=== PATIENT | female | born 1985 | race Caucasian/White ===

== ENCOUNTER 2019-10-17 00:37 | Emergency (ER) | payer OTHER, SELFPAY ==
--- NOTE | ~2019-10-17 | XR_ITS ---
EXAMINATION: XR chest 2V DATE: 10/17/2019 01:12 INDICATION: Left-sided chest and arm pain. Asthma. TECHNIQUE: PA and lateral views of the chest were obtained. COMPARISON: Chest radiograph dated 12/18/2017 FINDINGS: The lungs remain clear with no focal airspace opacities, pulmonary edema, pleural effusion or pneumot horax. The cardiomediastinal silhouette is normal. Visualized bones and soft tissues are unremarkable . IMPRESSION: 1. No acute cardiopulmonary disease. Reviewed, dictated and finalized at location A.
[2019-10-17 00:42] VITALS: BP 140/72; PULSE 67; RESP 20; TEMP 37; O2SAT 100
--- NOTE | 2019-10-17 00:44 | ECG_ITS ---
Measurements Intervals [place] Rate: 65 P: 43 TX: 144 QRS: 18 QRSD: 86 T: -78 QT: 380 QTc: 396 Interpretive Statements SINUS RHYTHM DELAYED PRECORDIAL R/S TRANSITION BORDERLINE ST-T WAVE ABNORMALITY- INFERIOR LEADS BASELINE WANDER- I, II, AVR, AVL, AVF BORDERLINE ECG Electronically Signed On 10-17-2019 7:05:48 CDT by Scott Mcdaniels D.O.
[2019-10-17 01:14] LABS: Basophils Absolute Auto 0.1 K/mm3 (0.0-0.1); Basophils Percent Auto 0.8 % (0.2-1.2); Eosinophils Absolute Auto 0.1 K/mm3 (0-0.3); Hematocrit 39.4 % (37.0-47.0); Hemoglobin 13.5 g/dL (12.0-15.0); Immature Granulocyte Absolute 0.02 K/mm3 (0.00-0.031); Immature Granulocyte Percent A 0.2 % (0-0.5); Lymphocytes Absolute Auto 2.73 K/mm3 (0.9-3.2); Lymphocytes Percent Auto 32.8 % (18.3-44.2); Mean Corpuscular HGB Conc 34.3 g/dl (32-36); Mean Corpuscular Hemoglobin 31.1 pg (26-34); Mean Corpuscular Volume 90.8 fl (80-100); Mean Platelet Volume 10.8 fl (7.4-10.4); Monocytes Absolute Auto 0.5 K/mm3 (0.1-0.6); Monocytes Percent Auto 6.3 % (2.6-8.5); Neutrophils Absolute Auto 4.9 K/mm3 (1.3-6.7); Neutrophils Percent Auto 58.9 % (45.5-73.1); Platelet Count Result 228 k/mm3 (150-375); Red Blood Count 4.34 M/mm3 (4.2-5.4); Red Cell Distribution Width 12.1 % (11.5-14.5); White Blood Count 8.3 K/mm3 (4.5-10.0)
[2019-10-17] MEDS: ASPIRIN 81 MG CHEWABLE TABLET 324 MG PO (01:14)
[2019-10-17 01:24] LABS: Prothrombin Time 12.9 Seconds (11.1-14.7)
[2019-10-17 01:25] LABS: Partial Thromboplastin Time 25.7 SECONDS (22.3-36.8)
[2019-10-17 01:28] VITALS: BP 132/24; PULSE 63; RESP 17; O2SAT 100
[2019-10-17 01:33] LABS: Anion Gap 9 mmol/L (8-16); Blood Urea Nitrogen 12 mg/dL (7-17); Calcium 8.9 mg/dL (8.4-10.2); Carbon Dioxide 26 mmol/L (22-30); Chloride 101 mmol/L (98-107); Estimated Glomerular Filt Rate > 60; Glucose 90 mg/dL (65-105); Potassium 3.8 mmol/L (3.4-5.0); Sodium 136 mmol/L (137-145)
--- NOTE | 2019-10-17 01:40 | ED.CHESTPAIN ---
HPI - Chest Pain General Chief Complaint: Chest Pain Stated Complaint: Chest pain Time Seen by Provider: 10/17/19 01:33 History of Present Illness HPI narrative: Patient presents with upper left chest pain radiating into her left arm. This happened when she was laying in bed with her son. She tried rolling over and stretching to get rid of it. She gauges it at a 10 out of 10 at that time. It is improved to an 8 out of 10 with the aspirin we gave her here. She has a history of GE reflux. She has a history of asthma. She has bipolar. She has not been sick recently. She has not been coughing. She smokes cigarettes,, but does not do marijuana. Has had endometriosis surgery,, . And hysterectomy. MD complaint: chest pain Pertinent past history: other (Asthma and bipolar) Onset (ago): hour(s) Timing of current episode: episodic Prior episodes: No Onset: during rest Pain location: left chest Pain radiation: left arm Severity: severe Relieving factors: nothing Exacerbating factors: nothing Related Data Allergies Allergy/AdvReac Type Severity Reaction Status Date / Time adhesive Allergy Mild RASH AND Verified 10/17/19 00:45 ITCHING latex Allergy Mild RASH Verified 10/17/19 00:45 linezolid Allergy Mild RASH Verified 10/17/19 00:45 paliperidone Allergy Mild RASH Verified 10/17/19 00:45 Penicillins Allergy Mild ANAPHYLACTIC Verified 10/17/19 00:45 REACTION hydrocodone Allergy Unknown RASH Verified 10/17/19 00:45 levofloxacin Allergy Unknown RASH Verified 10/17/19 00:45 clarithromycin AdvReac Mild RASH Verified 10/17/19 00:45 AMOXICILLIN TRIHYDRATE Allergy Mild SOB Uncoded 10/17/19 00:45 POTASSIUM CLAVULANATE Allergy Mild SOB Uncoded 10/17/19 00:45 DERMABOND AdvReac Unknown RASH; Uncoded 10/17/19 00:45 WOUND NONHEALING Review of Systems Review of Systems: Narrative: CONSTITUTIONAL: Denies fever, chills, or sweats. EYES: Denies visual changes, redness, or discharge. ENT: Denies rhinorrhea, congestion, sore throat, or otalgia. CARDIOVASCULAR: She has chest pain, but not palpitations, or edema. RESPIRATORY: Denies cough or dyspnea. GASTROINTESTINAL: Denies abdominal pain, nausea, vomiting, or diarrhea. GENITOURINARY: Denies dysuria or hematuria. SKIN: Denies rash or itching. MUSCULOSKELETAL: Denies back pain, joint pain, or myalgia. NEUROLOGIC: Denies headache, numbness, or weakness. PSYCHIATRIC: She has anxiety bipolar. All systems reviewed & are unremarkable except as noted in HPI and below PMFSH Past Medical History Medical History Asthma Bipolar 1 disorder GERD (gastroesophageal reflux disease) Surgical History Surgical History H/O: hysterectomy Hx of section Social History Social History Smoking status: Former smoker Exam Narrative: Exam Narrative: GENERAL: Well-appearing, well-nourished, and in no acute distress. HEAD: Normocephalic, atraumatic. EYES: PERRLA and EOMI. ENT: Nares clear, no rhinorrhea or epistaxis. Mucous membranes moist. NECK: Supple. CHEST: Clear to auscultation. No respiratory distress. HEART: Regular rate and rhythm. No murmur heard. Normal peripheral pulses. ABDOMEN: Soft, nontender, nondistended, normal active bowel sounds. EXTREMITIES: Normal range of motion. No edema. Cool hands SKIN: Warm, dry, no rash. NEURO: No focal deficits. Alert and oriented x3. PSYCH: Normal mood and affect. Course Vital Signs Vital signs: Vital Signs Temperature 98.6 F 10/17/19 00:42 Pulse Rate 67 10/17/19 00:42 Respiratory Rate 20 10/17/19 00:42 Blood Pressure 140/72 10/17/19 00:42 Pulse Oximetry 100 10/17/19 00:42 Temperature 98.6 F 10/17/19 00:42 Pulse Rate 63 10/17/19 01:28 Respiratory Rate 17 10/17/19 01:28 Blood Pressure 132/24 L 10/17/19 01:28 Pulse Oximetry 100
[2019-10-17 01:46] LABS: Troponin I < 0.012 ng/mL (0.000-0.034)
[2019-10-17] MEDS: FAMOTIDINE 20 MG/2 ML VIAL IV PUSH (02:08)
[2019-10-17] MEDS: KETOROLAC 15 MG/ML VIAL (*BKC) IV PUSH (02:08)
[2019-10-17 02:17] VITALS: BP 136/87; PULSE 65; RESP 18; O2SAT 100
== END 2019-10-17 02:18 | disposition home or self-care (01) ==
PROVIDERS: Emergency Provider Emergency Medicine; PCP Family Medicine
DX: R07.89 Other chest pain (principal); K21.9 Gastro-esophageal reflux disease without esophagitis; F17.210 Nicotine dependence, cigarettes, uncomplicated; J45.909 Unspecified asthma, uncomplicated; R94.31 Abnormal electrocardiogram [ECG] [EKG]
CPT/HCPCS: 36415; 71046; 80048; 84484; 85025; 85610; 85730; 93005; 96374; 96375; 99284; A9270; J1885

== ENCOUNTER 2020-06-17 21:38 | Emergency (ER) | payer OTHER, SELFPAY ==
[2020-06-17 21:51] VITALS: BP 126/78; PULSE 64; RESP 20; TEMP 36.7; O2SAT 100
[2020-06-17 22:33] VITALS: PULSE 58
[2020-06-17 22:34] VITALS: BP 143/68; PULSE 58; RESP 12; O2SAT 100
--- NOTE | 2020-06-17 22:35 | PC.NURSE ---
pt to ED room 8. reports starting quetiapine 150 mg last week for bipolar disorder. since then, has had itching and rash, so was told to stop taking it yesterday by md. pt reports eating hibachi dinner tonight and now feeling spacy and out of it . a/o x 4. able to answer all questions appropriately. gcs 15. mother at bedside. placed on engine monitor.
--- NOTE | 2020-06-17 22:57 | ED.GENADULT ---
HPI - General Adult General Chief complaint: Unspecified Stated complaint: possible reaction to medication Time Seen by Provider: 06/17/20 22:38 Source: patient Mode of arrival: ambulatory Limitations: no limitations History of Present Illness HPI narrative: Patient is a 34-year-old female complaining of she feels off , spacing off , not feeling right started 1 week ago after her Seroquel XR dose was increased to 150 mg. Patient called her doctor and was advised to hold her Seroquel this past Thursday. Patient has been off her Seroquel for the past 2 days. Patient denies any visual or auditory hallucinations. Patient denies any suicidal homicidal thoughts. Patient denies any thoughts of injuring herself. Related Data Allergies Allergy/AdvReac Type Severity Reaction Status Date / Time adhesive Allergy Mild RASH AND Verified 06/17/20 22:38 ITCHING latex Allergy Mild RASH Verified 06/17/20 22:38 linezolid Allergy Mild RASH Verified 06/17/20 22:38 paliperidone Allergy Mild RASH Verified 06/17/20 22:38 Penicillins Allergy Mild ANAPHYLACTIC Verified 06/17/20 22:38 REACTION hydrocodone Allergy Unknown RASH Verified 06/17/20 22:38 levofloxacin Allergy Unknown RASH Verified 06/17/20 22:38 clarithromycin AdvReac Mild RASH Verified 06/17/20 22:38 AMOXICILLIN TRIHYDRATE Allergy Mild SOB Uncoded 06/17/20 22:38 POTASSIUM CLAVULANATE Allergy Mild SOB Uncoded 06/17/20 22:38 DERMABOND AdvReac Unknown RASH; Uncoded 10/17/19 00:45 WOUND NONHEALING Review of Systems Review of Systems: All systems reviewed & are unremarkable except as noted in HPI and below Constitutional: Constitutional: Denies body ache(s), Denies chills, Denies excessive sweating, Denies fatigue, Denies fever(s), Denies headache(s), Denies lethargy, Denies malaise, Denies weakness and Denies weight loss Eyes: Eyes: Denies blurry vision, Denies change in vision and Denies loss of vision ENT: Denies dizziness, Denies ear discharge, Denies headache(s), Denies lip swelling, Denies epistaxis, Denies nasal congestion, Denies neck pain, Denies throat swelling and Denies tongue swelling Cardiovascular: Cardiovascular: Denies chest pain, Denies chest pain at rest, Denies chest pain with activity, Denies diaphoresis, Denies rapid heart rate, Denies edema, Denies irregular heart rhythm, Denies lightheadedness, Denies palpitations, Denies dyspnea and Denies dyspnea on exertion Respiratory: Respiratory: Denies chest congestion, Denies cough, Denies hemoptysis, Denies dyspnea and Denies dyspnea on exertion Gastrointestinal: Gastrointestinal: Denies abdominal pain, Denies melena, Denies hematochezia, Denies diarrhea, Denies nausea, Denies vomiting and Denies hematemesis Musculoskeletal: Musculoskeletal: Denies abnormal gait, Denies deformity, Denies joint swelling, Denies limited range of motion, Denies neck pain and Denies numbness Neurologic: Denies Abnormal speech present, Denies abnormal gait, Denies confusion, Denies dizziness, Denies headache(s), Denies focal weakness, Denies loss of vision, Denies numbness, Denies Other visual disturbances, Denies Sensory deficit (Neuro) and Denies weakness Psychiatric: Psychiatric: Denies depression, Denies auditory hallucinations, Denies homicidal ideation and Denies suicidal ideation Endocrine: Endocrine: Denies cold intolerance, Denies excessive sweating, Denies fatigue, Denies heat intolerance and Denies palpitations Hematologic/Lymphatic: Hematologic/Lymphatic: Denies easy bleeding and Denies easy bruising Allergic/Immunologic: Allergic/Immunologic: Denies lip swelling, Denies throat swelling and Denies tongue swelling PMFSH Past Medical History Medical History Asthma Bipolar 1 disorder GERD (gastroesophageal reflux disease) Surgical History Surgical History H/O: hysterectomy Hx of section Social Histo
[2020-06-17] MEDS: BENZTROPINE MESYLATE INJ 1 MG/ML AMPUL IM (23:21)
--- NOTE | 2020-06-17 23:50 | ED.GENADULT ---
HPI - General Adult General Chief complaint: Unspecified Stated complaint: possible reaction to medication Time Seen by Provider: 06/17/20 22:38 Source: patient Mode of arrival: ambulatory Limitations: no limitations Related Data Allergies Allergy/AdvReac Type Severity Reaction Status Date / Time adhesive Allergy Mild RASH AND Verified 06/17/20 22:38 ITCHING latex Allergy Mild RASH Verified 06/17/20 22:38 linezolid Allergy Mild RASH Verified 06/17/20 22:38 paliperidone Allergy Mild RASH Verified 06/17/20 22:38 Penicillins Allergy Mild ANAPHYLACTIC Verified 06/17/20 22:38 REACTION hydrocodone Allergy Unknown RASH Verified 06/17/20 22:38 levofloxacin Allergy Unknown RASH Verified 06/17/20 22:38 clarithromycin AdvReac Mild RASH Verified 06/17/20 22:38 AMOXICILLIN TRIHYDRATE Allergy Mild SOB Uncoded 06/17/20 22:38 POTASSIUM CLAVULANATE Allergy Mild SOB Uncoded 06/17/20 22:38 DERMABOND AdvReac Unknown RASH; Uncoded 10/17/19 00:45 WOUND NONHEALING PMFSH Past Medical History Medical History Asthma Bipolar 1 disorder GERD (gastroesophageal reflux disease) Surgical History Surgical History H/O: hysterectomy Hx of section Social History Social History Smoking status: Former smoker Course Vital Signs Vital signs: Vital Signs Temperature 36.7 C 06/17/20 21:51 Pulse Rate 64 06/17/20 21:51 Respiratory Rate 20 06/17/20 21:51 Blood Pressure 126/78 06/17/20 21:51 Pulse Oximetry 100 06/17/20 21:51 Temperature 36.7 C 06/17/20 21:51 Pulse Rate 58 L 06/17/20 22:34 Respiratory Rate 12 06/17/20 22:34 Blood Pressure 143/68 H 06/17/20 22:34 Pulse Oximetry 100 06/17/20 22:34 Medical Decision Making Vital Signs Vital Signs: Vital Signs Temperature 36.7 C 06/17/20 21:51 Pulse Rate 64 06/17/20 21:51 Respiratory Rate 20 06/17/20 21:51 Blood Pressure 126/78 06/17/20 21:51 Pulse Oximetry 100 06/17/20 21:51 Temperature 36.7 C 06/17/20 21:51 Pulse Rate 58 L 06/17/20 22:34 Respiratory Rate 12 06/17/20 22:34 Blood Pressure 143/68 H 06/17/20 22:34 Pulse Oximetry 100 06/17/20 22:34 Discharge Plan Discharge Clinical Impression: Medication side effect Patient Disposition: Home, Self-Care Condition: Improved Instructions: Bipolar Disorder (ED) Additional Instructions: Follow-up with your psychiatrist tomorrow. Prescriptions: No Action famotidine [Pepcid] 20 mg tablet 20 mg PO DAILY Qty: 30 RF: 0 Follow-up/Referrals: Rivera,Ricardo Piedra MD [Primary Care Provider] - 06/18/20 Time of Disposition: 23:30
[2020-06-18 00:15] VITALS: BP 104/66; PULSE 61; RESP 18; O2SAT 100
== END 2020-06-18 00:15 | disposition home or self-care (01) ==
LOC: ANHED 23:33
PROVIDERS: Emergency Provider Emergency Medicine; PCP Family Medicine
DX: R41.0 Disorientation, unspecified (principal); T43.595A Adverse effect of other antipsychotics and neuroleptics, initial encounter; J45.909 Unspecified asthma, uncomplicated; F31.9 Bipolar disorder, unspecified; K21.9 Gastro-esophageal reflux disease without esophagitis; Z87.891 Personal history of nicotine dependence
CPT/HCPCS: 96372; 99283; J0515

== ENCOUNTER 2020-07-13 14:30 | Outpatient (RCR) | payer OTHER, SELFPAY ==
--- NOTE | 2020-06-15 10:41 | PTOPEVAL ---
PHYSICAL THERAPY EVALUATION Thank you for referring Radha Mae to [facility].? Radha was evaluated for the dx of low back pain. The patient is scheduled to be seen for therapy? 2 x/week for 4 weeks. Please review, sign, date and return this plan of care [email or web address]. I agree with and certify that the following plan of care is medically necessary. Referring Physician Date Referring Provider: Ricardo Stafford, *PT Outpatient Evaluation Start: 06/15/20 09:33 Freq: Status: Active Protocol: Document 06/15/20 09:33 MLV (Rec: 06/15/20 10:31 MLV [id number]) Therapy Assessment Status Assessment Status Evaluation Evaluation Information Problem Diagnosis low back pain with sciatic pain Onset 6 yrs ago Additional Evaluation Detail Pt has had pain at her low back since having her child 6 years ago. Pt reports the pain started when they had a lot of trouble getting the epidural in correctly. The patient cares for her 3 boys, one which is autistic. Pt is a stay at home mom, does her housework, cooking, yardwork. The patient reports increased pain with lifting heavier objects, bending. Pt is not sleeping due to pain Subjective Information Pt goal is to be pain free at Query Text:As Reported By Patient/ her low back with bending/ Family lifting and at night. To sleep at night w/o pain waking Diagnostic Tests X-Rays For This Problem Yes: no bony structure issues Pain Assessment Timing of Pain Assessment Timing of Pain Assessment Assessment Pain Scale Pain Scale Used Numeric (1 - 10) Self Report Pain Assessment Lower Back Reported Pain Level 8 Pain Frequency Chronic Greatest Pain Intensity 10 Pain Aggravating Factors Bending,Lifting Pain Behaviors Guarding Pain Score Pain Score 8: Self Report Interventions Used Interventions Used By Clinicians Education,Electrical Stimulation,Exercise,Heat Pain Relief Interventions Used By Heat,Inactivity/Rest, Patient Medication,Position Change, Water Modality Other Alleviating Interventions pain mgmt-had one injection so far; gabapentin and m. relaxers Cervical and Lumbar ROM Lumbar
--- NOTE | 2020-07-13 15:17 | PTOPEVAL ---
PHYSICAL THERAPY DISCHARGE Thank you for referring Radha Mae to [facility].? The patient has been seen 9 visits for the dx of back pain with sciatica. The patient's goals are partially or not met with status peaked. DC PT. Please review, sign, date and return this plan of care. Referring Physician Date Referring Provider: Ricardo Stafford, MD *PT Outpatient Discharge Start: 06/15/20 09:33 Freq: Status: Active Protocol: Document 07/13/20 14:29 MLV (Rec: 07/13/20 14:59 MLV [id number]) Therapy Assessment Status Assessment Status Assessment Status Discharge Evaluation Information Problem Diagnosis low back pain with sciatic pain Onset 6 yrs ago Additional Evaluation Detail Patient reports her back pain is still about the same despite the therapy. The patient plans to schedule an appt with the MD regarding her back due to lack of improvement. The patient has an appt with pain mgmt on July 23 for follow up to determine next step for her back trouble. Pain Assessment Timing of Pain Assessment Timing of Pain Assessment Assessment Pain Scale Pain Scale Used Numeric (1 - 10) Self Report Pain Assessment Lower Back Reported Pain Level 8 Pain Frequency Chronic,Continuous Pain Aggravating Factors Bending,Lifting Pain Score Pain Score 8: Self Report Interventions Used Interventions Used By Clinicians Education,Electrical Stimulation,Exercise,Heat Pain Relief Interventions Used By Heat,Walking,Water Modality Patient Cervical and Lumbar ROM Lumbar ROM Lumbar Flexion Active [place],Ankle Query Text:Hands to: Lumbar Extension (0-40) 40 Query Text:Active in Degrees Lumbar Lateral Flexion Right (0-40) 40 Query Text:Active in Degrees Lumbar Lateral Flexion Left (0-40) 40 Query Text:Active in Degrees Lateral Rotation Right (0-45) 40 Query Text:Active in Degrees Lateral Rotation Left (0-45) 40 Query Text:Active in Degrees Lumbar Comments left rotation feels stiffer than right Cervical and Lumbar Muscle Testing Lumbar Strength Upper Abdominal Strength 3 Fair Lower Abdominal Strength 3 Fair Abdominal Obliques 3-Fair- Upper Back Extension 4-Good- Lower Back Extension
== END 2020-07-18 09:13 | disposition home or self-care (01) ==
LOC: ANHPT 14:30
PROVIDERS: PCP Family Medicine; Referring Provider Family Medicine; Visit Provider Family Medicine
DX: M54.5 Low back pain (principal)
CPT/HCPCS: 97014; 97110; 97140; 97162; G0283

== ENCOUNTER 2020-10-12 22:39 | Emergency (ER) | payer OTHER, SELFPAY ==
--- NOTE | ~2020-10-12 | XR_ITS ---
EXAMINATION: XR chest 1V portable DATE: 10/12/2020 23:08 INDICATION: Chest pain. TECHNIQUE: A single frontal view of the chest was obtained. COMPARISON: Chest 2 views 10/17/2019 FINDINGS: There is no pneumonia, pleural effusion, or pneumothorax. The heart size is normal. IMPRESSION: 1. No acute cardiopulmonary disease. Reviewed, dictated and finalized at location A.
[2020-10-12 22:41] VITALS: BP 130/100; PULSE 128; RESP 16; TEMP 36.8; O2SAT 100
--- NOTE | 2020-10-12 22:47 | ED.SOB ---
HPI - SOB/Dyspnea History of Present Illness HPI Narrative: 35 yo female w/ h/o BPD, asthma presents to the ED c/o COVID-19. She reports that she was diagnosed with COVID-19 on 10/05 and her symptoms began about the same time. these symptoms include cough, N/V/D, body aches, fatigue. She began having chest pain this evening. She reports that she does have chest pain sometimes and she does not know if this is any different. Related Data Allergies Allergy/AdvReac Type Severity Reaction Status Date / Time adhesive Allergy Mild RASH AND Verified 06/17/20 22:38 ITCHING latex Allergy Mild RASH Verified 06/17/20 22:38 linezolid Allergy Mild RASH Verified 06/17/20 22:38 paliperidone Allergy Mild RASH Verified 06/17/20 22:38 Penicillins Allergy Mild ANAPHYLACTIC Verified 06/17/20 22:38 REACTION hydrocodone Allergy Unknown RASH Verified 06/17/20 22:38 levofloxacin Allergy Unknown RASH Verified 06/17/20 22:38 clarithromycin AdvReac Mild RASH Verified 06/17/20 22:38 AMOXICILLIN TRIHYDRATE Allergy Mild SOB Uncoded 06/17/20 22:38 POTASSIUM CLAVULANATE Allergy Mild SOB Uncoded 06/17/20 22:38 DERMABOND AdvReac Unknown RASH; Uncoded 10/17/19 00:45 WOUND NONHEALING Review of Systems Review of Systems: All systems reviewed & are unremarkable except as noted in HPI and below Constitutional: Constitutional: Denies chills, Reports fatigue and Denies fever(s) ENT: Reports system reviewed and no additional complaints, except as documented Cardiovascular: Cardiovascular: Reports chest pain Respiratory: Respiratory: Reports cough and Reports dyspnea Gastrointestinal: Gastrointestinal: Denies abdominal pain, Reports diarrhea, Reports nausea and Reports vomiting Genitourinary: Genitourinary: Reports no additional female genitourinary complaints Neurologic: Reports headache(s) Psychiatric: Psychiatric: Reports anxiety PMFSH Past Medical History Medical History Asthma Bipolar 1 disorder GERD (gastroesophageal reflux disease) Surgical History Surgical History H/O: hysterectomy Hx of section Social History Social History Smoking status: Former smoker Gender identity (if verbalized by the patient): Female Exam Const: General: no acute distress and alert Nutritional Appearance: well nourished Orientation/consciousness: patient oriented x3 HENMT: Head: normal to inspection Neck: Neck: normal visual inspection Resp: Effort & Inspection: normal respiratory effort Auscultation: clear to auscultation bilaterally, no rales, no rhonchi and no wheezes Cardio: Jugular venous distension: no JVD Rate: tachycardic Rhythm: regular rhythm Heart sounds: no murmurs GI: Inspection: non-distended GI Palp: Yes Soft to palpation and No Tenderness to palpation present (GI) Skin: General skin exam: normal color Neuro: General: patient oriented x3 and moves all extremities Speech: normal speech Extrem: General: no edema Psych: Appearance: well kempt Affect: Anxious affect present Course Vital Signs Vital signs: Vital Signs Temperature 36.8 C 10/12/20 22:41 Pulse Rate 128 H 10/12/20 22:41 Respiratory Rate 16 10/12/20 22:41 Blood Pressure 130/100 H 10/12/20 22:41 Pulse Oximetry 100 10/12/20 22:41 Temperature 36.8 C 10/12/20 22:41 Pulse Rate 113 H 10/13/20 02:32 Respiratory Rate 20 10/13/20 02:32 Blood Pressure 137/91 H 10/13/20 02:32 Pulse Oximetry 100 10/13/20 02:32 MDM - SOB/Dyspnea MDM Narrative Medical decision making narrative: Labs suggest dehydration. CXR negative. felt better after 1 liter NS. There was another one ordered, but she chose to leave prior to getting the fluids or being officially discharge. Differential Diagnosis Differential diagnosis: Likely asthma with exacerbation and other (C
--- NOTE | 2020-10-12 22:52 | ECG_ITS ---
Measurements Intervals [place] Rate: 116 P: 65 IN: 138 QRS: 54 QRSD: 79 T: -10 QT: 341 QTc: 475 Interpretive Statements SINUS TACHYCARDIA POSSIBLE RIGHT ATRIAL ENLARGEMENT LEFT ATRIAL ENLARGEMENT ST-T WAVE ABNORMALITY IN ANTEROLAT/INF LEADS- CONSIDER ISCHEMIA BASELINE ARTIFACT- I, II, AVR, AVL ABNORMAL ECG Electronically Signed On 10-13-2020 8:21:00 CDT by Scott Mcdaniels D.O.
[2020-10-12] MEDS: KETOROLAC 30 MG/ML VIAL (*BKC) IV PUSH (23:16)
[2020-10-12 23:59] LABS: Basophils Percent Auto 0.4 % (0.2-1.2); Hematocrit 47.2 % (37.0-47.0); Hemoglobin 16.3 g/dL (12.0-15.0); Immature Granulocyte Absolute 0.01 K/mm3 (0.00-0.031); Immature Granulocyte Percent A 0.2 % (0-0.5); Lymphocytes Absolute Auto 0.65 K/mm3 (0.9-3.2); Lymphocytes Percent Auto 13.7 % (18.3-44.2); Mean Corpuscular HGB Conc 34.5 g/dl (32-36); Mean Corpuscular Hemoglobin 30.6 pg (26-34); Mean Corpuscular Volume 88.7 fl (80-100); Mean Platelet Volume 10.8 fl (7.4-10.4); Monocytes Absolute Auto 0.5 K/mm3 (0.1-0.6); Monocytes Percent Auto 10.4 % (2.6-8.5); Neutrophils Absolute Auto 3.6 K/mm3 (1.3-6.7); Neutrophils Percent Auto 75.3 % (45.5-73.1); Platelet Count Result 190 k/mm3 (150-375); Red Blood Count 5.32 M/mm3 (4.2-5.4); Red Cell Distribution Width 11.9 % (11.5-14.5); White Blood Count 4.7 K/mm3 (4.5-10.0)
[2020-10-13 00:01] LABS: Prothrombin Time 12.9 Seconds (11.1-14.7)
[2020-10-13 00:02] LABS: Alanine Aminotransferase 32 U/L (4-35); Alkaline Phosphatase 91 U/L (38-126); Anion Gap 13 mmol/L (8-16); Aspartate Amino Transferase 37 U/L (14-36); Bilirubin,Total 0.6 mg/dL (0.2-1.3); Blood Urea Nitrogen 3 mg/dL (7-17); Carbon Dioxide 23 mmol/L (22-30); Chloride 97 mmol/L (98-107); Estimated CRCL calculation 66 ml/min; Estimated Glomerular Filt Rate > 60; Glucose 116 mg/dL (65-110); Partial Thromboplastin Time 23.5 SECONDS (22.3-36.8); Potassium 3.5 mmol/L (3.4-5.0); Sodium 133 mmol/L (137-145)
[2020-10-13 00:33] VITALS: BP 129/99; PULSE 103; RESP 15; O2SAT 100
[2020-10-13] MEDS: SODIUM CHLORIDE 0.9% IV 1,000 ML 999 ML IV CONT (00:34)
[2020-10-13 02:07] VITALS: BP 137/91; PULSE 111; RESP 17; O2SAT 100
--- NOTE | 2020-10-13 02:30 | PC.NURSE ---
pt not wanting 2nd liter of fluids and wants to leave. IV removed w/ catheter intact. pt leaving department at this time.
[2020-10-13 02:32] VITALS: BP 137/91; PULSE 113; RESP 20; O2SAT 100
== END 2020-10-13 02:35 | disposition home or self-care (01) ==
PROVIDERS: Emergency Provider Emergency Medicine
DX: U07.1 COVID-19 (principal); E86.0 Dehydration; J45.909 Unspecified asthma, uncomplicated; K21.9 Gastro-esophageal reflux disease without esophagitis; Z87.891 Personal history of nicotine dependence; R00.0 Tachycardia, unspecified; R94.31 Abnormal electrocardiogram [ECG] [EKG]
CPT/HCPCS: 36415; 71045; 80053; 85025; 85380; 85610; 85730; 93005; 96361; 96374; 99284; J1885; J7030

== ENCOUNTER 2020-10-14 15:44 | Emergency (ER) | payer OTHER, SELFPAY ==
[2020-10-14 15:57] VITALS: BP 137/96; PULSE 90; RESP 18; TEMP 36.8; O2SAT 100
[2020-10-14 16:57] VITALS: BP 129/89; PULSE 88; RESP 18; TEMP 36.3; O2SAT 100
--- NOTE | 2020-10-14 18:31 | ED.GENADULT ---
HPI - General Adult General Chief complaint: Upper Respiratory Infection Stated complaint: redness to tongue Time Seen by Provider: 10/14/20 17:28 History of Present Illness HPI narrative: Patient is a 35-year-old female who presents ER with burning to her tongue. Began over the last day. No difficulty breathing or swallowing or tasting. Recently diagnosed with COVID-19 on 10/05/2020. Started having symptoms on 09/29 after going to [facility]. No chest pain or chest pressure. She was evaluated for the symptoms previously. No shortness of breath or cough. Concerned she may have strep throat. Related Data Allergies Allergy/AdvReac Type Severity Reaction Status Date / Time adhesive Allergy Mild RASH AND Verified 06/17/20 22:38 ITCHING latex Allergy Mild RASH Verified 06/17/20 22:38 linezolid Allergy Mild RASH Verified 06/17/20 22:38 paliperidone Allergy Mild RASH Verified 06/17/20 22:38 Penicillins Allergy Mild ANAPHYLACTIC Verified 06/17/20 22:38 REACTION hydrocodone Allergy Unknown RASH Verified 06/17/20 22:38 levofloxacin Allergy Unknown RASH Verified 06/17/20 22:38 clarithromycin AdvReac Mild RASH Verified 06/17/20 22:38 AMOXICILLIN TRIHYDRATE Allergy Mild SOB Uncoded 06/17/20 22:38 POTASSIUM CLAVULANATE Allergy Mild SOB Uncoded 06/17/20 22:38 DERMABOND AdvReac Unknown RASH; Uncoded 10/17/19 00:45 WOUND NONHEALING Review of Systems Constitutional: Constitutional: Denies chills, Denies fever(s) and Denies weakness ENT: Reports sore throat Comments: Burning to tongue Cardiovascular: Cardiovascular: Denies chest pain, Denies rapid heart rate and Denies radiating jaw, neck or arm pain Respiratory: Respiratory: Denies cough and Denies dyspnea PMFSH Past Medical History Medical History Asthma Bipolar 1 disorder GERD (gastroesophageal reflux disease) Surgical History Surgical History H/O: hysterectomy Hx of section Social History Social History Smoking status: Former smoker Gender identity (if verbalized by the patient): Female Exam Narrative: GENERAL: Well-appearing, well-nourished, and in no acute distress. HEAD: Normocephalic, atraumatic. ENT: Mucous membranes moist. Normal-appearing posterior oropharynx with normal sized tonsils without exudate, uvula midline and nonedematous, no edema to the tongue, no discoloration to the tongue or sloughing of skin. CHEST: Clear to auscultation. No respiratory distress. HEART: Regular rate and rhythm. Normal peripheral pulses. EXTREMITIES: Normal range of motion. No edema. NEURO: Alert and oriented x3. PSYCH: Normal mood and affect. Course Course Emergency Course: Negative strep. Discharge home. Vital Signs Vital signs: Vital Signs Temperature 98.3 F 10/14/20 15:57 Pulse Rate 90 10/14/20 15:57 Respiratory Rate 18 10/14/20 15:57 Blood Pressure 137/96 H 10/14/20 15:57 Pulse Oximetry 100 10/14/20 15:57 Temperature 97.3 F L 10/14/20 16:57 Pulse Rate 88 10/14/20 16:57 Respiratory Rate 18 10/14/20 16:57 Blood Pressure 129/89 10/14/20 16:57 Pulse Oximetry 100 10/14/20 16:57 Medical Decision Making Vital Signs Vital Signs: Vital Signs Temperature 98.3 F 10/14/20 15:57 Pulse Rate 90 10/14/20 15:57 Respiratory Rate 18 10/14/20 15:57 Blood Pressure 137/96 H 10/14/20 15:57 Pulse Oximetry 100 10/14/20 15:57 Temperature 97.3 F L 10/14/20 16:57 Pulse Rate 88 10/14/20 16:57 Respiratory Rate 18 10/14/20 16:57 Blood Pressure 129/89 10/14/20 16:57 Pulse Oximetry 100 10/14/20 16:57 Lab Data Labs: Strep Screen Presumptive Negative *(Reference Range: Negative)* Discharge Plan Discharge Clinical Impression: COVID-19 Debbie
[2020-10-14 18:49] VITALS: BP 141/81; PULSE 89; RESP 19; TEMP 36.7; O2SAT 100
== END 2020-10-14 18:49 | disposition home or self-care (01) ==
PROVIDERS: Emergency Provider Emergency Medicine; PCP Family Medicine
DX: U07.1 COVID-19 (principal); J45.909 Unspecified asthma, uncomplicated; K21.9 Gastro-esophageal reflux disease without esophagitis; F31.9 Bipolar disorder, unspecified
CPT/HCPCS: 87880; 99283

== ENCOUNTER 2021-04-02 08:54 | Outpatient (CLI) | payer OTHER, SELFPAY ==
[2021-04-02 09:09] LABS: Basophils Absolute Auto 0.1 K/mm3 (0.0-0.1); Basophils Percent Auto 1.4 % (0.2-1.2); Eosinophils Absolute Auto 0.1 K/mm3 (0-0.3); Eosinophils Percent Auto 2.5 % (0-4.4); Hematocrit 38.4 % (37.0-47.0); Immature Granulocyte Absolute 0.01 K/mm3 (0.00-0.031); Immature Granulocyte Percent A 0.2 % (0-0.5); Lymphocytes Absolute Auto 2.23 K/mm3 (0.9-3.2); Lymphocytes Percent Auto 40.3 % (18.3-44.2); Mean Corpuscular HGB Conc 33.9 g/dl (32-36); Mean Corpuscular Volume 94.6 fl (80-100); Mean Platelet Volume 11.3 fl (7.4-10.4); Monocytes Absolute Auto 0.4 K/mm3 (0.1-0.6); Monocytes Percent Auto 7.1 % (2.6-8.5); Neutrophils Absolute Auto 2.7 K/mm3 (1.3-6.7); Neutrophils Percent Auto 48.5 % (45.5-73.1); Platelet Count Result 200 k/mm3 (150-375); Red Blood Count 4.06 M/mm3 (4.2-5.4); Red Cell Distribution Width 12.2 % (11.5-14.5); White Blood Count 5.5 K/mm3 (4.5-10.0)
[2021-04-02 09:20] LABS: Alanine Aminotransferase 12 U/L (4-35); Alkaline Phosphatase 54 U/L (38-126); Anion Gap 4 mmol/L (8-16); Aspartate Amino Transferase 22 U/L (14-36); Bilirubin,Total 0.5 mg/dL (0.2-1.3); Blood Urea Nitrogen 11 mg/dL (7-17); Calcium 8.9 mg/dL (8.4-10.2); Carbon Dioxide 30 mmol/L (22-30); Chloride 103 mmol/L (98-107); Estimated Glomerular Filt Rate > 60; Glucose 79 mg/dL (65-110); Potassium 3.4 mmol/L (3.4-5.0); Sodium 137 mmol/L (137-145)
[2021-04-02 09:51] LABS: Thyroid Stimulating Hormone 0.941 uIU/mL (0.465-4.680)
== END 2021-04-02 08:55 | disposition home or self-care (01) ==
PROVIDERS: PCP Family Medicine; Visit Provider Family Medicine
DX: R55 Syncope and collapse (principal)
CPT/HCPCS: 36415; 80053; 84443; 85025

== ENCOUNTER 2021-12-29 14:52 | Emergency (ER) | payer OTHER, SELFPAY ==
[2021-12-29 15:10] VITALS: BP 129/85; PULSE 80; RESP 16; TEMP 36.8; O2SAT 100
--- NOTE | 2021-12-29 15:59 | ED.URI ---
HPI - URI/Sore Throat General Chief Complaint: Upper Respiratory Infection Stated Complaint: sore throat Time Seen by Provider: 12/29/21 15:15 Source: patient Mode of arrival: ambulatory Limitations: no limitations History of Present Illness HPI Narrative: Ms. Mae is a 36-year-old female patient presenting to the clinic today with complaints of sore throat x1 day. She reports that her son is also having a sore throat and has had his for 2 to 3 days. He was recently treated for strep 2 weeks ago. MD elicited complaint: sore throat and nasal congestion Related Data Home Medications Medication Instructions Recorded Confirmed baclofen 20 mg tablet 20 mg PO DAILY 12/29/21 12/29/21 cetirizine 10 mg tablet 10 mg PO DAILY 12/29/21 12/29/21 escitalopram oxalate 10 mg tablet 10 mg PO DAILY 12/29/21 12/29/21 gabapentin 100 mg capsule 100 mg PO DAILY 12/29/21 12/29/21 montelukast 10 mg tablet 10 mg PO DAILY 12/29/21 12/29/21 Allergies Allergy/AdvReac Type Severity Reaction Status Date / Time adhesive Allergy Mild RASH AND Verified 12/29/21 15:27 ITCHING latex Allergy Mild RASH Verified 12/29/21 15:27 linezolid Allergy Mild RASH Verified 12/29/21 15:27 paliperidone Allergy Mild RASH Verified 12/29/21 15:27 Penicillins Allergy Mild ANAPHYLACTIC Verified 12/29/21 15:27 REACTION hydrocodone Allergy Unknown RASH Verified 12/29/21 15:27 levofloxacin Allergy Unknown RASH Verified 12/29/21 15:27 quetiapine Allergy Hives Verified 12/29/21 15:31 clarithromycin AdvReac Mild RASH Verified 12/29/21 15:27 AMOXICILLIN TRIHYDRATE Allergy Mild SOB Uncoded 06/17/20 22:38 POTASSIUM CLAVULANATE Allergy Mild SOB Uncoded 06/17/20 22:38 DERMABOND AdvReac Unknown RASH; Uncoded 10/17/19 00:45 WOUND NONHEALING Review of Systems Review of Systems: Pertinent positives per HPI. Patient denies any fever, chills, rash, headache, visual changes, dizziness, cough, shortness of breath, chest pain, palpitations, nausea, vomiting, diarrhea, constipation, abdominal pain, or any urinary issues. [facility] Past Medical History Medical History Asthma Bipolar 1 disorder GERD (gastroesophageal reflux disease) Surgical History Surgical History H/O: hysterectomy Hx of section Social History Social History Smoking status: Former smoker Gender identity (if verbalized by the patient): Female Comments At the time of my signature, I reviewed and agree with the nursing past medical, surgical, social, and family history. There is no relevant family history pertinent to the patient complaint. Exam Narrative: General: Well-developed, well nourished, in no apparent distress Head: Normocephalic, atraumatic Eyes: Pupils equally round and reactive to light bilaterally, EOM intact, sclera and conjunctive clear, no discharge, lids normal Ears: TMs intact and clear, ear canals clear, no drainage, grossly hearing normal. Nose: Nares patent, no discharge, no inflammation, no sinus tenderness. Mouth: Oral pharynx without lesions or masses, good dentition, MMM. Oropharynx red Neck: Supple, trachea midline, no enlargement of anterior or posterior cervical nodes, no thyroid masses or goiter palpable. Cardio: Regular rate and rhythm, s1 and s2 normal, no murmur appreciated. Resp: Clear to auscultation bilaterally, no rhonchi, rales, wheezing or rubs Course Course Emergency Course: Portions of this record may have been created with voice recognition software. Level of Care: Express Care Visit Vital Signs Vital signs: Vital Signs Temperature 36.8 C 12/29/21 15:10 Pulse Rate 80 12/29/21 15:10 Respiratory Rate 16 12/29/21 15:10 Blood Pressure 129/85 12/29/21 15:10 Pulse Oximetry 100 12/29/21 15:10 Oxygen Delivery Room Air 12/29/21 15:10
== END 2021-12-29 16:05 | disposition home or self-care (01) ==
PROVIDERS: Emergency Provider Nurse Practitioner Family
DX: J02.9 Acute pharyngitis, unspecified (principal); Z20.818 Contact with and (suspected) exposure to other bacterial communicable diseases; J45.909 Unspecified asthma, uncomplicated; K21.9 Gastro-esophageal reflux disease without esophagitis; Z87.891 Personal history of nicotine dependence
CPT/HCPCS: 87880; 99213; G0463

== ENCOUNTER 2022-09-29 11:49 | Outpatient (CLI) | payer OTHER, SELFPAY ==
--- NOTE | ~2022-09-29 | XR_ITS ---
XR thoracic spine 3V DATE: 09/29/2022 12:14 INDICATION: Thoracic back pain. Status post spine surgery. TECHNIQUE: AP, lateral, swimmer views COMPARISON: None FINDINGS: No fracture or dislocation. The thoracic pedicles are intact. No paraspinal soft tissue thi ckening. IMPRESSION: Negative Reviewed, dictated and finalized at location B. IMPRESSION: Negative
== END 2022-09-29 11:50 | disposition home or self-care (01) ==
PROVIDERS: PCP Family Medicine; Visit Provider Family Medicine
DX: M54.6 Pain in thoracic spine (principal)
CPT/HCPCS: 72072

== ENCOUNTER 2022-10-31 11:08 | Outpatient (CLI) | payer OTHER, SELFPAY ==
[2022-10-31 12:13] LABS: Hematocrit 39.8 % (37.0-47.0); Hemoglobin 13.3 g/dL (12.0-15.0); Mean Corpuscular HGB Conc 33.4 g/dl (32-36); Mean Corpuscular Volume 95.7 fl (80-100); Mean Platelet Volume 11.2 fl (7.4-10.4); Platelet Count Result 235 k/mm3 (150-375); Red Blood Count 4.16 M/mm3 (4.2-5.4); Red Cell Distribution Width 12.2 % (11.5-14.5); White Blood Count 5.7 K/mm3 (4.5-10.0)
[2022-10-31 12:30] LABS: Alanine Aminotransferase 20 U/L (6-35); Albumin Level 4.2 g/dL (3.5-5.1); Alkaline Phosphatase 59 U/L (38-126); Anion Gap 6 mmol/L (8-16); Aspartate Amino Transferase 26 U/L (14-36); Bilirubin,Total 0.4 mg/dL (0.2-1.3); Blood Urea Nitrogen 10 mg/dL (7-17); Calcium 8.8 mg/dL (8.4-10.2); Carbon Dioxide 30 mmol/L (22-30); Chloride 103 mmol/L (98-107); Cholesterol 176 mg/dL (0-200); Estimated Glomerular Filt Rate > 60; Glucose 89 mg/dL (65-110); HDL Direct 53 mg/dL; Potassium 3.8 mmol/L (3.4-5.0); Sodium 139 mmol/L (137-145); Triglycerides 55 mg/dL (<150)
[2022-10-31 12:39] LABS: LDL Cholesterol Direct 104 mg/dL
[2022-10-31 13:36] LABS: Thyroid Stimulating Hormone Reflex 0.633 uIU/mL (0.465-4.68)
== END 2022-10-31 11:09 | disposition home or self-care (01) ==
PROVIDERS: PCP Family Medicine; Visit Provider Family Medicine
DX: E66.9 Obesity, unspecified (principal)
CPT/HCPCS: 36415; 80053; 80061; 84443; 85027

== ENCOUNTER 2023-05-05 09:25 | Outpatient (CLI) | payer OTHER, SELFPAY ==
--- NOTE | ~2023-05-05 | XR_ITS ---
EXAMINATION: XR lumbar spine 2-3V DATE: 05/05/2023 09:46 INDICATION: Low back pain TECHNIQUE: Two views of the lumbar spine are obtained COMPARISON: 06/22/2018 FINDINGS: Bone alignment is normal. There is no fracture. There is mild loss of intervertebral disc s pace height at L5-S1. The vertebral body heights are maintained. There is mild facet joint osteoarthr itis of the mid and lower lumbar spine. IMPRESSION: 1. Mild lumbar spondylosis without acute findings. Reviewed, dictated and finalized at location L. K BRACER
== END 2023-05-05 09:26 | disposition home or self-care (01) ==
PROVIDERS: PCP Family Medicine; Visit Provider Family Medicine
DX: M47.896 Other spondylosis, lumbar region (principal)
CPT/HCPCS: 72100

== ENCOUNTER 2024-02-25 08:19 | Emergency (ER) | payer OTHER, SELFPAY ==
[2024-02-25 08:24] VITALS: BP 124/81; PULSE 85; RESP 20; TEMP 36.8; O2SAT 100
--- NOTE | 2024-02-25 08:30 | ED_ITS ---
HPI - General Adult General Chief complaint: Skin/Abscess/Foreign Body Stated complaint: reaction to nose ring/poss infection Time Seen by Provider: 02/25/24 08:30 Source: patient Mode of arrival: ambulatory Limitations: no limitations History of Present Illness HPI narrative: 38-year-old female presented for complaint of skin irritation to the left outer nare. Onset 2 days. Symptoms started after she put in a black nose ring, stating she usually can only tolerate surgical steel. States it started itching that evening and she woke the next morning with redness and crust to the site. She removed the nose ring. Endorses mild pain. Has applied Aquaphor, neosporin and cleansed the site with alcohol. Related Data Home Medications ?Medication ?Instructions ?Recorded ?Confirmed ?Last Taken ?Type cetirizine 10 mg tablet 10 mg PO DAILY 12/29/21 02/25/24 Unknown History escitalopram oxalate 10 mg tablet 10 mg PO DAILY 12/29/21 02/25/24 Unknown History gabapentin 100 mg capsule 100 mg PO DAILY 12/29/21 02/25/24 Unknown History montelukast 10 mg tablet 10 mg PO DAILY 12/29/21 02/25/24 Unknown History albuterol sulfate 90 mcg/actuation 2 puff inhalation Q4-6H PRN 02/25/24 02/25/24 Unknown History aerosol inhaler shortness of breath or wheezing cyclobenzaprine 10 mg tablet 10 mg PO Q12H 02/25/24 02/25/24 Unknown History escitalopram oxalate 20 mg tablet 20 mg PO DAILY 02/25/24 02/25/24 Unknown History naproxen 500 mg tablet 500 mg PO Q12H 02/25/24 02/25/24 Unknown History Allergies Allergy/AdvReac Type Severity Reaction Status Date / Time adhesive Allergy Mild RASH AND Verified 02/25/24 08:35 ITCHING latex Allergy Mild RASH Verified 02/25/24 08:35 linezolid Allergy Mild RASH Verified 02/25/24 08:35 paliperidone Allergy Mild RASH Verified 02/25/24 08:35 Penicillins Allergy Mild ANAPHYLACTIC Verified 02/25/24 08:35 REACTION hydrocodone Allergy Unknown RASH Verified 02/25/24 08:35 levofloxacin Allergy Unknown RASH Verified 02/25/24 08:35 quetiapine Allergy Hives Verified 02/25/24 08:35 clarithromycin AdvReac Mild RASH Verified 02/25/24 08:35 amoxicillin (From Augmentin) AdvReac Nausea and Verified 02/25/24 08:35 Vomiting clavulanic acid (From AdvReac Nausea and Verified 02/25/24 08:35 Augmentin) Vomiting DERMABOND AdvReac Unknown RASH; Uncoded 10/17/19 00:45 WOUND NONHEALING Review of Systems Review of Systems: CONSTITUTIONAL: Denies body aches, fever, chills, or sweats. ENT: Denies rhinorrhea, congestion CARDIOVASCULAR: Denies chest pain, palpitations, or edema. RESPIRATORY: Denies cough or dyspnea. GASTROINTESTINAL: Denies abdominal pain, nausea, vomiting, or diarrhea. SKIN: reports redness and crust to nose MUSCULOSKELETAL: Denies back pain, joint pain, or myalgia. NEUROLOGIC: Denies headache, numbness, tingling, or weakness. [facility] Past Medical History Medical History Bipolar 1 disorder GERD (gastroesophageal reflux disease) Asthma Surgical History Surgical History Hx of section H/O: hysterectomy Social History Social History Smoking status: Former smoker Gender identity (if verbalized by the patient): Female Comments At time of signature, I have reviewed and agree with nursing past medical, surgical, social and family history unless otherwise noted. Please see nursing chart for further information. There is no relevant family history pertinent to the presenting complaint Exam Narrative: GENERAL: Well-appearing EYES: conjunctivae clear, and EOMI. ENT: Mucous membranes moist. Oropharynx without edema, erythema or lesions. NECK: Supple. No lymphadenopathy CHEST: Clear to auscultation. HEART: Regular rate and rhythm. SKIN: Warm, dry. Left lateral nare with 1cm area of scattered erythematous papules, scant clear drainage. no internal swelling. NEURO: Alert and oriented x3. Course Course Emergency Course: Patient is aware of diagnosis, understands and agrees to treatment plan. Anticipatory guidance given. Patient agrees to follow-up as directed and is aware of reasons to seek care at the emergency department. Portions of this record may have been created with voice recognition software Level of Care: Express Care Visit Vital Signs Vital signs: Vital Signs Temperature 98.2 F 02/25/24 08:24 Pulse Rate 85 02/25/24 08:24 Respiratory Rate 20 02/25/24 08:24 Blood Pressure 124/81 02/25/24 08:24 Pulse Oximetry 100 02/25/24 08:24 Oxygen Delivery Room Air 02/25/24 08:24 Temperature 98.2 F 02/25/24 08:24 Pulse Rate 85 02/25/24 08:24 Respiratory Rate 20 02/25/24 08:24 Blood Pressure 124/81 02/25/24 08:24 Pulse Oximetry 100 02/25/24 08:24 Oxygen Delivery Room Air 02/25/24 08:24 Reviewed Medical Decision Making MDM Narrative Medical decision making narrative: Discussed physical exam findings. Reviewed Rx. Advised supportive measures and signs/symptoms to go to the ER. Pt is appropriate for outpt treatment and f/u. Differential Diagnosis Differential Diagnosis: Viral exanthema, contact dermatitis, allergic dermatitis, eczema, urticaria, insect bites, impetigo, tinea, folliculitis Vital Signs Vital Signs: Vital Signs Temperature 98.2 F 02/25/24 08:24 Pulse Rate 85 02/25/24 08:24 Respiratory Rate 20 02/25/24 08:24 Blood Pressure 124/81 02/25/24 08:24 Pulse Oximetry 100 02/25/24 08:24 Oxygen Delivery Room Air 02/25/24 08:24 Temperature 98.2 F 02/25/24 08:24 Pulse Rate 85 02/25/24 08:24 Respiratory Rate 20 02/25/24 08:24 Blood Pressure 124/81 02/25/24 08:24 Pulse Oximetry 100 02/25/24 08:24 Oxygen Delivery Room Air 02/25/24 08:24 Discharge Plan Discharge Clinical Impression: Dermatitis Patient Disposition: Home, Self-Care Condition: Stable Instructions: Antibiotic Form, General Allergic Reaction (ED) Additional Instructions: Keep the area clean and dry - cleanse with warm water and mild soap and allow to fully dry. applied it to the site as directed Keep it open to air (no bandages) take antibiotic as directed Do not pick at the site Watch for worsening symptoms including pain, redness, swelling, streaking, pus/drainage, fever. Go to the ER with any of these symptoms or concerns. Follow up with primary care provider Patient Language: Icelandic Prescriptions: New clindamycin HCl [Cleocin HCl] 300 mg capsule 300 mg PO Q6H 7 Days Qty: 28 0RF mupirocin 2 % ointment 1 applic topical BID 7 Days Qty: 22 0RF No Action cetirizine 10 mg tablet 10 mg PO DAILY montelukast 10 mg tablet 10 mg PO DAILY gabapentin 100 mg capsule 100 mg PO DAILY escitalopram oxalate 10 mg tablet 10 mg PO DAILY escitalopram oxalate 20 mg tablet 20 mg PO DAILY albuterol sulfate 90 mcg/actuation HFA aerosol inhaler 2 puff INHALATION Q4-6H PRN (Reason: shortness of breath or wheezing) naproxen 500 mg tablet 500 mg PO Q12H cyclobenzaprine 10 mg tablet 10 mg PO Q12H famotidine [Pepcid] 20 mg tablet 20 mg PO DAILY Qty: 30 0RF Follow-up/Referrals: Rivera,Ricardo Piedra MD [Primary Care Provider] - Time of Disposition: 08:44
== END 2024-02-25 08:45 | disposition home or self-care (01) ==
PROVIDERS: Emergency Provider Nurse Practitioner Family; PCP Family Medicine
DX: L30.9 Dermatitis, unspecified (principal)
CPT/HCPCS: 99213; G0463